=== PATIENT | male | born 1945 | race African-American/Black ===

== ENCOUNTER → 2020-05-24 09:38 | Outpatient (CLI) | payer OTHER ==
[2020-05-24 13:05] LABS: T4 THYROXINE 7.5 ug/dL (4.7-13.3); THYROID STIMULATING HORMONE 0.93 uIU/mL (0.36-3.74)
[2020-05-26 16:09] LABS: HGB - A Reflexed % (96.4-98.8); HGB - A2 Reflexed % (1.8-3.2); HGB - F Reflexed % (0.0-2.0); HGB - S Reflexed % (0.0)
== END | disposition home or self-care (01) ==
LOC: D.RAD 05-19 09:30
PROVIDERS: ATTEND Internal Medicine Gastroenterology
DX: D50.9 Iron deficiency anemia, unspecified (principal)